=== PATIENT | female | born 2000 ===

== ENCOUNTER 2020-08-26 12:17 | Outpatient (REF) | payer OTHER, SELFPAY | END 2020-08-26 12:18 | disposition home or self-care (01) | LOC: HO.LAB 12:17 | PROVIDERS: PCP Internal Medicine; Visit Provider Internal Medicine | DX: Z20.828 Contact with and (suspected) exposure to other viral communicable diseases (principal) | CPT/HCPCS: C9803; U0003 ==

== ENCOUNTER 2020-09-22 09:51 | Outpatient (REF) | payer OTHER, SELFPAY ==
[2020-09-24 21:37] LABS: TS Negative Control Passed; TS Panel A 0; TS Panel B 0; TS Positive Control Passed; TSpotTB Negative (SeeBelow)
== END 2020-09-22 09:52 | disposition home or self-care (01) ==
LOC: HO.HMGCLDS 09:51
PROVIDERS: PCP Internal Medicine; Visit Provider Internal Medicine
DX: Z11.1 Encounter for screening for respiratory tuberculosis (principal)
CPT/HCPCS: 86481

== ENCOUNTER 2021-03-11 13:17 | Emergency (ER) | payer OTHER, SELFPAY ==
--- NOTE | ~2021-03-11 | US_ITS ---
EXAMINATION: US VENOUS ULTRASOUND WITH DOPPLER LOWER EXTREMITY, RIGHT CLINICAL INFORMATION: Swelling and pain. COMPARISON: None TECHNIQUE: Ultrasound of the deep veins is performed from the hip to the calf with compression sonography and color and pulse Doppler assessment. Spectral analysis with color-flow imaging is performed. FINDINGS: There is normal venous compression and respiratory variation and augmented flow. The visualized common femoral vein, superficial femoral vein, profunda femoral vein, popliteal vein, and the trifurcation region shows no evidence of deep venous thrombosis. There is no significant popliteal fossa cyst. The peroneal vein is not visualized with certainty. If the patient's symptoms persist, followup ultrasound in 5 days 7 days might be of value to exclude proximal propagation from a non-visualized calf vein. US/US venous duplex LE RT IMPRESSION: No DVT demonstrated in the right lower extremity.
[2021-03-11 13:50] VITALS: BP 148/81; PULSE 92; RESP 18; TEMP 36.8; O2SAT 100; BMI 57.9
--- NOTE | 2021-03-11 15:02 | ED_ITS ---
HPI - Extremity Injury (Lower) General Chief Complaint: Extremity Injury, Lower Stated Complaint: redness on leg Time Seen by Provider: 03/11/21 14:48 Source: patient and certified court/medical interpreter Mode of arrival: ambulatory Limitations: no limitations and language barrier History of Present Illness HPI Narrative: 20 yo female here with complaints of pain, swelling and warmth to the right calf x3 days. She has a history of cellulitis on this leg and states it feels similar. No redness, fevers or chills. Related Data Allergies Allergy/AdvReac Type Severity Reaction Status Date / Time No Known Allergies Allergy Verified 03/11/21 14:10 Review of Systems Review of Systems: Yes all other systems are reviewed and are negative Constitutional: Constitutional: Reports no additional constitutional complaints, Denies body ache(s), Denies chills, Denies fever(s), Denies headache(s) and Denies weakness Eyes: Eyes: Reports no additional eye complaints and Denies change in vision ENT: Reports system reviewed and no additional complaints, except as documented, Denies dizziness, Denies headache(s), Denies nasal congestion, Denies nasal discharge and Denies neck pain Cardiovascular: Cardiovascular: Reports no additional cardiovascular complaints, Denies chest pain, Reports leg edema and Denies dyspnea Respiratory: Respiratory: Reports no additional respiratory complaints, Denies cough and Denies dyspnea Gastrointestinal: Gastrointestinal: Reports no additional gastrointestinal complaints, Denies abdominal pain, Denies diarrhea, Denies nausea and Denies vomiting Genitourinary: Genitourinary: Reports no additional female genitourinary complaints and Denies urinary incontinence Musculoskeletal: Musculoskeletal: Reports no additional musculoskeletal co mplaints, Denies back pain, Denies arthralgias, Denies joint swelling, Denies neck pain, Denies numbness and Denies tingling Integumentary/Breasts: Skin/Breast: Reports system reviewed and no additional complaints, except as docu and Denies rash Neurologic: Reports system reviewed and no additional complaints, except as documented, Denies Abnormal speech present, Denies dizziness, Denies headache(s), Denies numbness, Denies tingling and Denies weakness PMFSH Past Medical History Attestation statement: The following information was validated with the patient. Source: old records reviewed and nursing notes reviewed Social History Social History Advance Directives: No Advance Directives Information Provided: Yes Physical Exam Vital Signs: Vital Signs: Last Vital Signs Temp 98.2 F 03/11/21 13:50 Pulse 92 03/11/21 13:50 Resp 18 03/11/21 13:50 BP 148/81 H 03/11/21 13:50 Pulse Ox 100 03/11/21 13:50 Body Mass Index 57.9 Const: General: cooperative, healthy appearing, comfortable and no acute distress Orientation/consciousness: patient oriented x3 Limitations: no limitations HENMT: Head: Yes normal to inspection Ears: hearing grossly normal bilaterally General nose exam: Normal external nose present Face and sinus: Yes normal facial exam Mouth: Normal oral and palatal mucosa present Throat: Yes posterior oropharynx normal Eyes: General: appearance normal, both eyes and all related structures Pupils: Equal, round and reactive pupils present Neck: Neck: Yes normal visual inspection Chest: Chest palpation & inspection: normal inspection of the chest Resp: Effort & Inspection: normal respiratory effort Auscultation: clear to auscultation bilaterally Cardio: Rate: regular rate Rhythm: regular rhythm Peripheral pulses: Peripheral pulses 2+ throughout GI: Inspection: Yes normal to inspection Palpation (GI): Soft to palpation and nontender Auscultation: normal bowel sounds Back/Spine/Pelvis: Thoracic/Lumbar Spine: thoracic and lumbar spine normal to inspection Skin: General skin exam: no rashes or lesions noted Neuro: General: patient oriented x3, no focal motor deficits and normal sensation to monofilament Cranial nerves: Yes Equal, round and reactive pupils present Cognition (Neuro): normal cognition Speech: No Abnormal speech present Gait exam (Neuro): Normal gait present Motor exam (neuro): 5/5 motor strength present throughout Extrem: General: Yes normal to inspection and Yes calf tenderness (Right calf tender, mild swelling. No warmth or redness) Course Course Course Narrative: 20-year-old female here with right calf tenderness, swelling and reported warmth. Exam is not consistent with cellulitis. There is some mild calf tenderness and swelling. The patient is grossly obese. Will check ultrasound to r/o DVT -ultrasound negative for DVT. I did not appreciate any signs of cellulitis on exam. Likely muscle strain. Reviewed findings with the patient. Reviewed worrisome signs and symptoms such as fever, redness, warmth and when to return to the emergency department. Comfortable discharge home. Discharge Plan Discharge Clinical Impression: Muscle strain Patient Disposition: Home, Self-Care Instructions: Muscle Strain (ED) Additional Instructions: Your ultrasound shows no signs of blood clot Return for increasing redness or warmth or fever greater than 100.4 Referrals: Sarah Vergara MD [Primary Care Provider] - 2 days Interventions: ED Discharge Assessment Last Done: 03/11/21 16:53 Discharge Date/Time: 03/11/21 16:53
== END 2021-03-11 16:53 | disposition home or self-care (01) ==
PROVIDERS: Emergency Provider Emergency Medicine Emergency Medical Services; PCP Internal Medicine
DX: S86.911A Strain of unspecified muscle(s) and tendon(s) at lower leg level, right leg, initial encounter (principal); X58.XXXA Exposure to other specified factors, initial encounter; R22.41 Localized swelling, mass and lump, right lower limb; M79.661 Pain in right lower leg; Y93.9 Activity, unspecified; Y92.9 Unspecified place or not applicable; Y99.9 Unspecified external cause status
CPT/HCPCS: 93971; 99283; 99284

== ENCOUNTER 2021-07-25 15:08 | Emergency (ER) | payer OTHER, SELFPAY ==
[2021-07-25 17:52] VITALS: BP 130/60; PULSE 82; RESP 18; TEMP 36.8; O2SAT 100; BMI 56.9
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
== END 2021-07-25 19:26 | disposition home or self-care (01) ==
PROVIDERS: Emergency Provider Emergency Medicine Emergency Medical Services; PCP Internal Medicine
DX: S39.012A Strain of muscle, fascia and tendon of lower back, initial encounter (principal); M54.2 Cervicalgia; V43.62XA Car passenger injured in collision with other type car in traffic accident, initial encounter; Y93.9 Activity, unspecified; Y92.410 Unspecified street and highway as the place of occurrence of the external cause; Y99.9 Unspecified external cause status; Z79.899 Other long term (current) drug therapy
CPT/HCPCS: 99283

== ENCOUNTER 2021-09-11 11:30 | Emergency (ER) | payer OTHER, SELFPAY ==
--- NOTE | 2021-09-11 | ECG_ITS ---
Test Reason : TACHYCHADIC Blood Pressure : / mmHG Vent. Rate : 114 BPM Atrial Rate : 114 BPM P-R Int : 134 ms QRS Dur : 072 ms QT Int : 322 ms P-R-T Axes : 029 015 018 degrees QTc Int : 443 ms Sinus tachycardia Otherwise normal ECG No previous ECGs available Referred By: Generic ED Physician Electronically Signed By:ALVAREZ SAHNI MD
--- NOTE | ~2021-09-11 | US_ITS ---
EXAMINATION: US VENOUS ULTRASOUND WITH DOPPLER LOWER EXTREMITY, RIGHT CLINICAL INFORMATION: Pain COMPARISON: None TECHNIQUE: Ultrasound of the deep veins is performed from the hip to the calf with compression sonography and color and pulse Doppler assessment. Spectral analysis with color-flow imaging is performed. FINDINGS: There is normal venous compression and respiratory variation and augmented flow. The visualized common femoral vein, superficial femoral vein, profunda femoral vein, popliteal vein, and the trifurcation region shows no evidence of deep venous thrombosis. The calf veins are not visualized due to edema. Superficial varicosities noted. If the patient's symptoms persist, followup ultrasound in 5 days 7 days might be of value to exclude proximal propagation from a non-visualized calf vein. US/US venous duplex LE RT IMPRESSION: No DVT demonstrated in the right lower extremity from the common femoral vein to the popliteal vein. The calf veins are not visualized. If the patient's symptoms persist, followup ultrasound in 5 days 7 days might be of value to exclude proximal propagation from a non-visualized calf vein.
[2021-09-11 11:47] VITALS: BP 148/88; PULSE 120; RESP 18; TEMP 37.3; O2SAT 100; BMI 56.9
[2021-09-11 13:58] VITALS: BP 135/70; PULSE 104; RESP 18; TEMP 36.9; O2SAT 99
--- NOTE | 2021-09-11 14:09 | ED_ITS ---
HPI - Extremity Problem General Chief complaint: Extremity Problem Stated complaint: rt leg pain & swelling ?cellulitis Time Seen by Provider: 09/11/21 13:01 History of Present Illness HPI Narrative: Patient complains of anterior right lower leg redness and pain for several days, she may have had a low-grade fever yesterday, but no fever today She otherwise feels well and has no headache no body aches no dizziness Related Data Previous Rx's Medication Instructions Recorded cyclobenzaprine 10 mg tablet 10 mg PO TID PRN #10 tab 07/25/21 ibuprofen 600 mg tablet 600 mg PO Q8H PRN #20 tab 07/25/21 lidocaine 5 % topical patch 1 patch TOPICAL DAILY #15 ea 07/25/21 (Lidoderm) metoprolol succinate 50 mg 50 mg PO DAILY #30 tab 08/09/21 tablet,extended release 24 hr cephalexin 500 mg tablet 500 mg PO QID 7 Days #28 tab 09/11/21 doxycycline hyclate 100 mg capsule 100 mg PO BID 7 Days #14 cap 09/11/21 Allergies Allergy/AdvReac Type Severity Reaction Status Date / Time No Known Allergies Allergy Verified 08/17/21 10:55 Review of Systems Review of Systems: Positive for right lower leg redness and pain Negatives are no chills no dizziness no weakness no headache no confusion no neck pain no stiff neck no other skin rashes no nausea or vomiting no anorexia no fatigue Yes all other systems are reviewed and are negative [facility] Past Medical History Source: nursing notes reviewed Medical History (Updated 09/11/21 @ 14:53 by JOSE Ferrer) Hypertensive retinopathy of both eyes Lumbago with sciatica, right side Social History Social History Advance Directives: No Advance Directives Information Provided: Yes Patient : No Physical Exam Vital Signs: Vital Signs: Last Vital Signs Temp 98.4 F 09/11/21 13:58 Pulse 104 H 09/11/21 13:58 Resp 18 09/11/21 13:58 BP 135/70 09/11/21 13:58 Pulse Ox 99 09/11/21 13:58 Body Mass Index 56.9 Pulse of 120 was noted when patient entered from triage, but repeat pulse was 104 and when patient was observed on the monitor the pulse was in the 90s General appearance no acute distress The neck is supple The chest is clear to auscultation bilateral Heart no murmur Abdomen soft nontender Extremities full range of motion x4 Right lower leg had a 3 cm x 4 cm area of redness and very mild induration no fluctuance no discharge no lymphangitis, the area was tender and mildly warm There is full range of motion in the ankle and the knee in the gait was normal Neuro no focal motor sensory deficits Course Course Course Narrative: Sepsis unlikely as initial elevated pulse done in triage was likely from walking up the hill to the department and pulse remained normal throughout visit in the ER with no medication or fluids Patient has no complaint of headache fever fatigue and her only complaint is the painful red area in her right lower leg so patient was discharged on antibiotics the cellulitis was marked and she will return in 2-3 days for recheck Ultrasound of the right lower leg was done and was negative for DVT Discharge Plan Discharge Clinical Impression: Cellulitis of leg, right Patient Disposition: Home, Self-Care Additional Instructions: Use antibiotics as directed The ultrasound of her leg was negative there is no blood clot If the leg gets more swollen return to the ER for recheck Return to the ER any time for spreading redness, worse pain and swelling, red stripe up her leg, fever, any worse condition or any concerns Return to the ER in 2-3 days for recheck Prescriptions: New cephalexin 500 mg tablet 500 mg PO QID 7 Days Qty: 28 RF: 0 doxycycline hyclate 100 mg capsule 100 mg PO BID 7 Days Qty: 14 RF: 0 No Action metoprolol succinate 50 mg tablet extended release 24 hr 50 mg PO DAILY Qty: 30 RF: 1 cyclobenzaprine 10 mg tablet 10 mg PO TID PRN (Reason: muscle spasm) Qty: 10 RF: 0 lidocaine [Lidoderm] 5 % adhesive patch,medicated 1 patch topical DAILY Qty: 15 RF: 0 ibuprofen 600 mg tablet 600 mg PO Q8H PRN (Reason: pain) Qty: 20 RF: 0
[2021-09-11] MEDS: cephALEXin 500 MG CAPSULE PO (14:59)
== END 2021-09-11 15:10 | disposition home or self-care (01) ==
PROVIDERS: Emergency Provider Emergency Medicine Emergency Medical Services; PCP Internal Medicine
DX: L03.115 Cellulitis of right lower limb (principal); M79.604 Pain in right leg
CPT/HCPCS: 93005; 93971; 99283; 99284

== ENCOUNTER 2021-10-03 19:51 | Emergency (ER) | payer OTHER, SELFPAY ==
--- NOTE | ~2021-10-03 | XR_ITS ---
EXAMINATION: XR CHEST CLINICAL INFORMATION: Chest pain COMPARISON: None TECHNIQUE: Frontal view of the chest was obtained. FINDINGS: No significant abnormality is noted involving the heart, lungs, mediastinum, bony thorax or soft tissues. XR/XR chest 1V IMPRESSION: Unremarkable examination.
[2021-10-03 20:17] VITALS: BP 156/87; PULSE 124; RESP 17; TEMP 36.4; O2SAT 100; BMI 54.9
--- NOTE | 2021-10-03 20:23 | ECG_ITS ---
Test Reason : PALPITATIONS Blood Pressure : / mmHG Vent. Rate : 112 BPM Atrial Rate : 112 BPM P-R Int : 130 ms QRS Dur : 068 ms QT Int : 314 ms P-R-T Axes : 030 011 024 degrees QTc Int : 428 ms Sinus tachycardia Cannot rule out Anterior infarct , age undetermined , ? lead placement Borderline ECG When compared with ECG of 11-SEP-2021 12:02, No significant change was found Referred By: Generic ED Physician Electronically Signed By:ANNETTE MADRID MD
[2021-10-03 21:24] LABS: Anion Gap 16 (12-20); Blood Urea Nitrogen 20 mg/dL (9-16); Calcium 9.5 mg/dL (8.4-10.2); Carbon Dioxide 19 mmol/L (22-29); Chloride 106 mmol/L (96-108); Creatinine Clr Calc Pharmacy 108.5; Estimated Glomerular Filt Rate > 60; Glucose Random 113 mg/dL (60-115); Potassium 4.5 mmol/L (3.3-5.1); Sodium 136 mmol/L (135-145)
[2021-10-03 22:48] LABS: Basophils Absolute Auto 0.1 X10*3/uL (0.0-0.2); Basophils Percent Auto 0.5 % (0-2); Eosinophils Absolute Auto 0.3 X10*3/uL (0.0-0.4); Eosinophils Percent Auto 1.9 % (0-4); Hematocrit 34.5 % (37.0-47.0); Hemoglobin 9.3 g/dl (12.0-16.0); Imm Gran Abs Auto 0.03 X10*3/uL (0.00-0.03); Imm Gran Pct Auto 0.2 % (0.0-0.4); Lymphocytes Absolute Auto 2.8 X10*3/uL (1.2-4.9); Lymphocytes Percent Auto 21.5 % (20-40); Mean Corpuscular Hemoglobin 16.7 pg (27.0-33.0); Mean Platelet Volume 8.9 fL (9.4-12.3); Monocytes Percent Auto 7.7 % (2-11); Neutrophils Percent Auto 68.2 % (45-73); Platelet Count 390 X10*3/uL (160-400); Red Blood Count 5.57 X10*6/uL (4.20-5.50); Red Cell Distribution Width 22.8 % (11.0-16.0); White Blood Count 13.2 X10*3/uL (4.8-10.8)
[2021-10-03 22:51] LABS: MANUAL DIFF FLAG SCAN; Mean Corpuscular Volume 61.9 fL (80.0-98.0)
[2021-10-03 23:05] LABS: SLIDE REVIEW VERIFIED
[2021-10-03 23:12] LABS: Troponin-I High Sensitivity < 3.5 ng/L (<3.5-17.0)
[2021-10-03 23:58] LABS: Appearance Urine CLOUDY; Color Urine YELLOW; Glucose Urine UA NEG (NEG); Leukocyte Esterase Urine NEG (NEG); Nitrite Urine NEG (NEG); PH 6.5 (5.0-8.0); UACC Culture Trigger NO; Urine Blood 3+ (NEG); Urine Ketones NEG (NEG); Urine Protein NEG (NEG-TRACE)
[2021-10-04 00:14] LABS: Amorphous Sediment Urine 1+ /LPF; Bacteria Urine TRACE /LPF; RBC Urine 50-75 /HPF (0); Squamous Epithelial Cell Urine 3+ /LPF
--- NOTE | 2021-10-04 00:19 | ED.ARRPALP ---
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 have not been associated with any fever, chills, shortness of breath, nausea, sweating, GI or symptoms. Patient states that she did drink caffeine today and understands that she is not supposed to be consuming this. Related Data Previous Rx's Medication Instructions Recorded cyclobenzaprine 10 mg tablet 10 mg PO TID PRN #10 tab 07/25/21 ibuprofen 600 mg tablet 600 mg PO Q8H PRN #20 tab 07/25/21 lidocaine 5 % topical patch 1 patch TOPICAL DAILY #15 ea 07/25/21 (Lidoderm) cephalexin 500 mg tablet 500 mg PO QID 7 Days #28 tab 09/11/21 doxycycline hyclate 100 mg capsule 100 mg PO BID 7 Days #14 cap 09/11/21 metoprolol succinate 50 mg 50 mg PO DAILY #30 tab 10/01/21 tablet,extended release 24 hr Allergies Allergy/AdvReac Type Severity Reaction Status Date / Time No Known Allergies Allergy Verified 10/03/21 20:23 Review of Systems Review of Systems: Pertinent positives and negatives as stated in HPI 10 point review of systems is otherwise negative. PMFSH Past Medical History Medical History (Updated 10/04/21 @ 00:29 by Cookie Porras MD) Hypertensive retinopathy of both eyes Lumbago with sciatica, right side Social History Social History Advance Directives: No Advance Directives Information Provided: Yes Patient : No Physical Exam Vital Signs: Vital Signs: Last Vital Signs Temp 97.6 F 10/03/21 20:17 Pulse 124 H 10/03/21 20:17 Resp 17 10/03/21 20:17 BP 156/87 H 10/03/21 20:17 Pulse Ox 100 10/03/21 20:17 BMI result Body Mass Index 54.9 VITAL SIGNS: Reviewed. GENERAL: Well developed, well nourished, in no acute distress. HEAD: Normocephalic/atraumatic EYES: PERRLA, EOMI OROPHARYNX: no oral lesions noted, posterior pharynx clear NECK: Supple, no adenopathy LUNGS: Normal breath sounds. No adventitious sounds or accessory muscle use. SpO2<> CARDIOVASCULAR: Sinus tachycardia and rhythm without noted murmurs, no JVD or lower extremity edema. ABDOMEN: Obese, Soft, non-tender, non-distended with bowel sounds. NEUROLOGIC: Alert and oriented x 4. Course Course Course Narrative: This is a 21-year-old female with history and clinical presentation likely consistent with underlying palpitations which were exacerbated by excessive caffeine intake. Low clinical suspicion for PE. There is a noted leukocytosis chest x-ray and urinalysis are negative for acute findings. The anemia is acknowledged and patient is currently menstruating and is otherwise asymptomatic but instructed follow-up with primary care provider. MDM - Arrhythmia/Palpitations Lab Data Result diagrams: 10/03/21 22:43 10/03/21 20:59 Labs: Lab Results 10/03/21 10/03/21 10/03/21 Range/Units 20:59 22:43 22:43 WBC 13.2 H (4.8-10.8) X10*3/uL RBC 5.57 H (4.20-5.50) X10*6/uL Hgb 9.3 L (12.0-16.0) g/dl Hct 34.5 L (37.0-47.0) % MCV 61.9 L (80.0-98.0) fL MCH 16.7 L (27.0-33.0) pg MCHC 27.0 L (31.0-35.0) g/dl RDW 22.8 H (11.0-16.0) % Plt Count 390 (160-400) X10*3/uL MPV 8.9 L (9.4-12.3) fL Immature Gran % (Auto) 0.2 (0.0-0.4) % Neut % (Auto) 68.2 (45-73) % Lymph % (Auto) 21.5 (20-40) % [place] % (Auto) 7.7 (2-11) % Eos % (Auto) 1.9 (0-4) % Baso % (Auto) 0.5 (0-2) % Lymph # (Auto) 2.8 (1.2-4.9) X10*3/uL [place] # (Auto) 1.0 (0.1-1.2) X10*3/uL Eos # (Auto) 0.3 (0.0-0.4) X10*3/uL Baso # (Auto) 0.1 (0.0-0.2) X10*3/uL Abs Immat Gran (auto) 0.03 (0.00-0.03) X10*3/uL Absolute Neuts (auto) 9.0 H (2.0-8.3) x10*3/uL Absolute Nucleated RBC 0.000 (0.0-0.012) X10*3/uL Nucleated RBC % (auto) 0.0 (0.0-0.2) /100WBC Smear Tech's Comments VERIFIED Sodium 136 (135-145) mmol/L Potassium 4.5 (3.3-5.1) mmol/L Chloride 106 (96-108) mmol/L Carbon Dioxide 19 L (22-29) mmol/L Anion Gap 16 (12-20) BUN 20 H (9-16) mg/dL Creatinine 0.85 (0.5-1.4) mg/dL Estim Creat Clear Calc 108.5 Estimated GFR > 60 Random Glucose 113 (60-115) mg/dL Calcium 9.5 (8.4-10.2) mg/dL Troponin I High Sens < 3.5 (<3.5-17.0) ng/L Urine Color Urine Appearance Urine pH (5.0-8.0) Ur Specific [place] (1.005-1.025) Urine Protein (NEG-TRACE) MG/DL Urine Glucose (UA) (NEG) MG/DL Urine Ketones (NEG) MG/DL Urine Blood (NEG) Urine Nitrite (NEG) Ur Leukocyte Esterase (NEG) Urine RBC (0) /HPF Urine WBC (0-4) /HPF Ur Squamous Epith Cells /LPF Amorphous Sediment /LPF Urine Bacteria /LPF 10/03/21 Range/Units 23:54 WBC (4.8-10.8) X10*3/uL RBC (4.20-5.50) X10*6/uL Hgb (12.0-16.0) g/dl Hct (37.0-47.0) % MCV (80.0-98.0) fL MCH (27.0-33.0) pg MCHC (31.0-35.0) g/dl RDW (11.0-16.0) % Plt Count (160-400) X10*3/uL MPV (9.4-12.3) fL Immature Gran % (Auto) (0.0-0.4) % Neut % (Auto) (45-73) % Lymph % (Auto) (20-40) % [place] % (Auto) (2-11) % Eos % (Auto) (0-4) % Baso % (Auto) (0-2) % Lymph # (Auto) (1.2-4.9) X10*3/uL [place] # (Auto) (0.1-1.2) X10*3/uL Eos # (Auto) (0.0-0.4) X10*3/uL Baso # (Auto) (0.0-0.2) X10*3/uL Abs Immat Gran (auto) (0.00-0.03) X10*3/uL Absolute Neuts (auto) (2.0-8.3) x10*3/uL Absolute Nucleated RBC (0.0-0.012) X10*3/uL Nucleated RBC % (auto) (0.0-0.2) /100WBC Smear Tech's Comments Sodium (135-145) mmol/L Potassium (3.3-5.1) mmol/L Chloride (96-108) mmol/L Carbon Dioxide (22-29) mmol/L Anion Gap (12-20) BUN (9-16) mg/dL Creatinine (0.5-1.4) mg/dL Estim Creat Clear Calc Estimated GFR Random Glucose (60-115) mg/dL Calcium (8.4-10.2) mg/dL Troponin I High Sens (<3.5-17.0) ng/L Urine Color YELLOW Urine Appearance CLOUDY Urine pH 6.5 (5.0-8.0) Ur Specific [place] 1.020 (1.005-1.025) Urine Protein NEG (NEG-TRACE) MG/DL Urine Glucose (UA) NEG (NEG) MG/DL Urine Ketones NEG (NEG) MG/DL Urine Blood 3+ H (NEG) Urine Nitrite NEG (NEG) Ur Leukocyte Esterase NEG (NEG) Urine RBC 50-75 H (0) /HPF Urine WBC 1-4 (0-4) /HPF Ur Squamous Epith Cells 3+ /LPF Amorphous Sediment 1+ /LPF Urine Bacteria TRACE /LPF ECG Data Attestation: I personally reviewed and interpreted this ECG as follows: Prior ECG tracings: available for review Interpretation: Sinus tachycardia, HR-112, no STEMI, AL/QRS/QTC are within normal limits. Discharge Plan Discharge Clinical Impression: Palpitations Patient Disposition: Home, Self-Care Instructions: Heart Palpitations (ED) Additional Instructions: 1. Reanude todos los medicamentos caseros seg?n lo prescrito y evite los productos con cafe?na. 2. Yuri un seguimiento con oscar m?dico de cabecera para que le reeval?e la anemia y las palpitaciones. Regrese a la john de emergencias si los s?ntomas empeoran. Prescriptions: No Action metoprolol succinate 50 mg tablet extended release 24 hr 50 mg PO DAILY Qty: 30 RF: 5 cyclobenzaprine 10 mg tablet 10 mg PO TID PRN (Reason: muscle spasm) Qty: 10 RF: 0 lidocaine [Lidoderm] 5 % adhesive patch,medicated 1 patch topical DAILY Qty: 15 RF: 0 ibuprofen 600 mg tablet 600 mg PO Q8H PRN (Reason: pain) Qty: 20 RF: 0 cephalexin 500 mg tablet 500 mg PO QID 7 Days Qty: 28 RF: 0 doxycycline hyclate 100 mg capsule 100 mg PO BID 7 Days Qty: 14 RF: 0 Print Language: Serbian
[2021-10-04 00:21] VITALS: BP 142/84; PULSE 104; RESP 16; O2SAT 100
== END 2021-10-04 00:58 | disposition home or self-care (01) ==
PROVIDERS: Emergency Provider Student in an Organized Health Care Education/Training Program
DX: R00.2 Palpitations (principal); I10 Essential (primary) hypertension; Z79.899 Other long term (current) drug therapy
CPT/HCPCS: 36415; 71045; 80048; 81001; 84484; 85025; 93005; 99283; 99284

== ENCOUNTER 2021-10-05 22:16 | Emergency (ER) | payer OTHER, SELFPAY ==
--- NOTE | ~2021-10-05 | CT_ITS ---
EXAMINATION: CT ABDOMEN AND PELVIS WITH CONTRAST CLINICAL INFORMATION: Mid abdomen pain. COMPARISON: None TECHNIQUE: Multidetector volumetric images were obtained from the superior aspect of the liver through the pubic symphysis following administration 85 mL of Omnipaque 350 intravenous contrast. Sagittal and coronal reformatted images were obtained on the technologist's workstation. Oral contrast: No. This CT examination was performed using dose optimization techniques as appropriate, variously including the following: *Automated exposure control *Adjustment of mA and/or kV according to patient size (this includes techniques or standardized protocols for targeted exams where dose is matched to indication/reason for exam; i.e. extremities or head) *Use of iterative reconstruction technique DLP: 1696 mGy-cm FINDINGS: LUNG BASES: The visualized lung bases are unremarkable. LIVER, GALLBLADDER, AND BILIARY TREE: The liver is normal in size, shape, and attenuation. No focal hepatic lesion or biliary ductal dilatation is present. There are multiple radiopaque gallstones without wall thickening. PANCREAS: Unremarkable. SPLEEN: Unremarkable. ADRENAL GLANDS: Unremarkable. KIDNEYS AND URETERS: There is a small hypodense punctate density lower pole of left kidney, probable small cyst. The rest of the kidneys are unremarkable. No radiopaque calculi or hydronephrosis. BLADDER: Unremarkable. GASTROINTESTINAL TRACT: The small and large bowel are unremarkable. The appendix is unremarkable. ABDOMINAL WALL: No significant hernia is appreciated. LYMPH NODES: Normal. VASCULAR: Unremarkable. PELVIC VISCERA: There is a low-density cystic lesion in the right adnexa superior to the uterus measuring 7.2 x 4.9 x 5.6 cm. There is a smaller hypodense cyst adjacent to it measuring 2.2 cm. The uterus is anteverted. OSSEOUS STRUCTURES: No lytic or sclerotic process seen. CT/CT abdomen pelvis w con IMPRESSION: Right adnexal cyst with a large right adnexal cyst measuring 7.2 cm wide. Cholelithiasis without wall thickening. Fleischner guidelines were followed.
[2021-10-05 22:21] VITALS: BP 124/72; BP 154/74; PULSE 103; PULSE 105; RESP 18; TEMP 37.1; O2SAT 97; O2SAT 99; BMI 54.9
--- NOTE | 2021-10-06 00:50 | ED_ITS ---
HPI - Abdominal Pain General Chief Complaint: Abdominal Pain Stated Complaint: nausea and vomiting, not feeling well. Time Seen by Provider: 10/05/21 23:13 Source: patient Mode of arrival: ambulatory History of Present Illness HPI narrative: 21-year-old female with history and clinical presentation of subjective fevers, chills, nausea, vomiting and states that she is having periumbilical pain that is crampy in nature and nonradiating. Otherwise she denies any urinary symptoms and denies possibility of . Related Data Previous Rx's Medication Instructions Recorded cyclobenzaprine 10 mg tablet 10 mg PO TID PRN #10 tab 07/25/21 ibuprofen 600 mg tablet 600 mg PO Q8H PRN #20 tab 07/25/21 lidocaine 5 % topical patch 1 patch TOPICAL DAILY #15 ea 07/25/21 (Lidoderm) cephalexin 500 mg tablet 500 mg PO QID 7 Days #28 tab 09/11/21 doxycycline hyclate 100 mg capsule 100 mg PO BID 7 Days #14 cap 09/11/21 metoprolol succinate 50 mg 50 mg PO DAILY #30 tab 10/01/21 tablet,extended release 24 hr Allergies Allergy/AdvReac Type Severity Reaction Status Date / Time No Known Allergies Allergy Verified 10/03/21 20:23 Review of Systems Review of Systems Pertinent positives and negatives as stated in HPI 10 point review of systems is otherwise negative. Physical Exam Vital Signs: Vital Signs: Last Vital Signs Temp 98.8 F 10/05/21 22:21 Pulse 103 H 10/05/21 22:21 Resp 18 10/05/21 22:21 BP 124/72 10/05/21 22:21 Pulse Ox 99 10/05/21 22:21 BMI result Body Mass Index 54.9 VITAL SIGNS: Reviewed. GENERAL: Obese, Well developed, well nourished, in no acute distress. HEAD: Normocephalic/atraumatic EYES: PERRLA, EOMI OROPHARYNX: no oral lesions noted, posterior pharynx clear LUNGS: Normal breath sounds. No adventitious sounds or accessory muscle use. SpO2<99> CARDIOVASCULAR: Regular rate and rhythm without noted murmurs ABDOMEN: Soft, tenderness at mid abdomen and into right abdomen, but exam is somewhat limited by body habitus, non-distended with bowel sounds. NEUROLOGIC: Alert and oriented x 4. Course Course Course Narrative: 21-year-old female with history and clinical presentation suggestive of possible renal colic, appendicitis, and less likely cholecystitis. Remaining documentation in is on downtime paperwork. Patient was discharged with surgical referral for cholelithiasis. MDM - Abdominal Pain Lab Data Result diagrams: 10/05/21 22:23 10/06/21 01:26 Labs: Lab Results 10/05/21 10/06/21 10/06/21 Range/Units 22:23 01:26 01:36 WBC 7.9 (4.8-10.8) X10*3/uL RBC 5.92 H (4.20-5.50) X10*6/uL Hgb 9.9 L (12.0-16.0) g/dl Hct 36.1 L (37.0-47.0) % MCV 61.0 L (80.0-98.0) fL MCH 16.7 L (27.0-33.0) pg MCHC 27.4 L (31.0-35.0) g/dl RDW 22.2 H (11.0-16.0) % Plt Count 297 (160-400) X10*3/uL MPV 8.6 L (9.4-12.3) fL Immature Gran % (Auto) 0.5 H (0.0-0.4) % Neut % (Auto) 87.4 H (45-73) % Lymph % (Auto) 6.8 L (20-40) % [place] % (Auto) 5.2 (2-11) % Eos % (Auto) 0.0 (0-4) % Baso % (Auto) 0.1 (0-2) % Lymph # (Auto) 0.5 L (1.2-4.9) X10*3/uL [place] # (Auto) 0.4 (0.1-1.2) X10*3/uL Eos # (Auto) 0.0 (0.0-0.4) X10*3/uL Baso # (Auto) 0.0 (0.0-0.2) X10*3/uL Abs Immat Gran (auto) 0.04 H (0.00-0.03) X10*3/uL Absolute Neuts (auto) 6.9 (2.0-8.3) x10*3/uL Absolute Nucleated RBC 0.000 (0.0-0.012) X10*3/uL Nucleated RBC % (auto) 0.0 (0.0-0.2) /100WBC Sodium 131 L (135-145) mmol/L Potassium 3.9 (3.3-5.1) mmol/L Chloride 104 (96-108) mmol/L Carbon Dioxide 18 L (22-29) mmol/L Anion Gap 13 (12-20) BUN 14 (9-16) mg/dL Creatinine 0.77 (0.5-1.4) mg/dL Estim Creat Clear Calc 119.8 Estimated GFR > 60 Random Glucose 120 H (60-115) mg/dL Calcium 8.7 D (8.4-10.2) mg/dL Total Bilirubin 0.6 (0.0-1.0) mg/dL AST 17 (5-31) U/L ALT 11 (0-31) U/L Alkaline Phosphatase 66 (39-117) U/L Total Protein 8.1 H (6.5-8.0) g/dL Albumin 4.1 (3.5-5.0) g/dL Lipase 24 (8-78) U/L Beta HCG, Quant < 2 mIU/mL COVID-19 ([facility]) Negative (Negative) COVID-19 Clin Com See Note Discharge Plan Discharge Clinical Impression: Abdominal pain, Cholelithiasis Patient Disposition: Home, Self-Care Prescriptions: No Action metoprolol succinate 50 mg tablet extended release 24 hr 50 mg PO DAILY Qty: 30 RF: 5 cyclobenzaprine 10 mg tablet 10 mg PO TID PRN (Reason: muscle spasm) Qty: 10 RF: 0 lidocaine [Lidoderm] 5 % adhesive patch,medicated 1 patch topical DAILY Qty: 15 RF: 0 ibuprofen 600 mg tablet 600 mg PO Q8H PRN (Reason: pain) Qty: 20 RF: 0 cephalexin 500 mg tablet 500 mg PO QID 7 Days Qty: 28 RF: 0 doxycycline hyclate 100 mg capsule 100 mg PO BID 7 Days Qty: 14 RF: 0 PMFSH Past Medical History Source: nursing notes reviewed Medical History Hypertensive retinopathy of both eyes Lumbago with sciatica, right side Social History Social History Advance Directives: No Advance Directives Information Provided: No
[2021-10-06 05:40] LABS: Basophils Percent Auto 0.1 % (0-2); Hematocrit 36.1 % (37.0-47.0); Hemoglobin 9.9 g/dl (12.0-16.0); Imm Gran Abs Auto 0.04 X10*3/uL (0.00-0.03); Imm Gran Pct Auto 0.5 % (0.0-0.4); Lymphocytes Absolute Auto 0.5 X10*3/uL (1.2-4.9); Lymphocytes Percent Auto 6.8 % (20-40); MANUAL DIFF FLAG NO; Mean Corpuscular HGB Conc 27.4 g/dl (31.0-35.0); Mean Corpuscular Hemoglobin 16.7 pg (27.0-33.0); Mean Platelet Volume 8.6 fL (9.4-12.3); Monocytes Absolute Auto 0.4 X10*3/uL (0.1-1.2); Monocytes Percent Auto 5.2 % (2-11); Neutrophils Absolute Auto 6.9 x10*3/uL (2.0-8.3); Neutrophils Percent Auto 87.4 % (45-73); Platelet Count 297 X10*3/uL (160-400); Red Blood Count 5.92 X10*6/uL (4.20-5.50); Red Cell Distribution Width 22.2 % (11.0-16.0); White Blood Count 7.9 X10*3/uL (4.8-10.8)
[2021-10-06 05:40] LABS: Alanine Aminotransferase 11 U/L (0-31); Albumin Level 4.1 g/dL (3.5-5.0); Alkaline Phosphatase 66 U/L (39-117); Anion Gap 13 (12-20); Aspartate Amino Transferase 17 U/L (5-31); Bilirubin Total 0.6 mg/dL (0.0-1.0); Blood Urea Nitrogen 14 mg/dL (9-16); Calcium 8.7 mg/dL (8.4-10.2); Carbon Dioxide 18 mmol/L (22-29); Chloride 104 mmol/L (96-108); Creatinine Clr Calc Pharmacy 119.8; Estimated Glomerular Filt Rate > 60; Glucose Random 120 mg/dL (60-115); HCG Quantitative < 2 mIU/mL; Lipase 24 U/L (8-78); Potassium 3.9 mmol/L (3.3-5.1); Sodium 131 mmol/L (135-145); Total Protein 8.1 g/dL (6.5-8.0)
[2021-10-06 05:52] LABS: COVID-19 Test Negative (Negative)
[2021-10-06] MEDS: iohexoL 350 MG/ML 100 ML INFUS..BTL IV (06:23)
[2021-10-06 07:19] LABS: UPreg QC Valid YES; Urine Pregnancy NEGATIVE (NEGATIVE)
[2021-10-06 07:20] LABS: Appearance Urine CLOUDY; Color Urine YELLOW; Glucose Urine UA NEG (NEG); Leukocyte Esterase Urine NEG (NEG); Nitrite Urine POS (NEG); Specific Gravity - Urine >= 1.030 (1.005-1.025); UACC Culture Trigger YES; Urine Blood 3+ (NEG); Urine Ketones NEG (NEG); Urine Protein 1+ MG/DL (NEG-TRACE)
[2021-10-06 07:21] LABS: Bacteria Urine 2+ /LPF; Squamous Epithelial Cell Urine 1+ /LPF
== END 2021-10-06 03:30 | disposition home or self-care (01) ==
PROVIDERS: Emergency Provider Student in an Organized Health Care Education/Training Program; PCP Internal Medicine
DX: K80.20 Calculus of gallbladder without cholecystitis without obstruction (principal); R10.9 Unspecified abdominal pain; Z20.822 Contact with and (suspected) exposure to COVID-19; R11.2 Nausea with vomiting, unspecified; E66.01 Morbid (severe) obesity due to excess calories
CPT/HCPCS: 36415; 74177; 80053; 81001; 81025; 83690; 84702; 85025; 87086; 87635; 99282; 99285; Q9967

== ENCOUNTER → 2021-11-03 10:45 | Outpatient (BNVA) | payer OTHER, SELFPAY | PROVIDERS: PCP Internal Medicine; Referring Provider Internal Medicine; Visit Provider Surgery | DX: K80.20 Calculus of gallbladder without cholecystitis without obstruction (principal); E66.01 Morbid (severe) obesity due to excess calories; Z68.43 Body mass index [BMI] 50.0-59.9, adult | CPT/HCPCS: 99202 ==

== ENCOUNTER 2022-05-01 14:38 | Emergency (ER) | payer OTHER, SELFPAY ==
[2022-05-01 14:44] VITALS: BP 158/88; PULSE 93; RESP 16; TEMP 36.2; O2SAT 99; BMI 59.1
[2022-05-01 15:11] LABS: Hematocrit 40.4 % (37.0-47.0); Hemoglobin 11.4 g/dl (12.0-16.0); Mean Corpuscular HGB Conc 28.2 g/dl (31.0-35.0); Mean Corpuscular Hemoglobin 18.3 pg (27.0-33.0); Red Blood Count 6.24 X10*6/uL (4.20-5.50); Red Cell Distribution Width 23.3 % (11.0-16.0)
[2022-05-01 15:12] LABS: Mean Corpuscular Volume 64.7 fL (80.0-98.0)
[2022-05-01 15:13] LABS: PLT ABN DIST 1
[2022-05-01 15:19] LABS: Alanine Aminotransferase 23 U/L (0-31); Albumin Level 4.2 g/dL (3.5-5.0); Alkaline Phosphatase 69 U/L (39-117); Anion Gap 14 (12-20); Aspartate Amino Transferase 27 U/L (5-31); Bilirubin Total 0.3 mg/dL (0.0-1.0); Blood Urea Nitrogen 10 mg/dL (9-16); Calcium 9.4 mg/dL (8.4-10.2); Carbon Dioxide 15 mmol/L (22-29); Chloride 109 mmol/L (96-108); Creatinine Clr Calc Pharmacy 124.4; Estimated Glomerular Filt Rate > 60; Glucose Random 139 mg/dL (60-115); Lipase 36 U/L (8-78); Potassium 4.3 mmol/L (3.3-5.1); Sodium 134 mmol/L (135-145); Total Protein 8.2 g/dL (6.5-8.0)
[2022-05-01 15:36] LABS: Platelet Count 107 X10*3/uL (160-400); White Blood Count 5.4 X10*3/uL (4.8-10.8)
--- NOTE | 2022-05-01 16:25 | ED_ITS ---
HPI - Abdominal Pain General Chief Complaint: Abdominal Pain Stated Complaint: abd pain Time Seen by Provider: 05/01/22 16:23 Source: patient Mode of arrival: ambulatory Limitations: no limitations History of Present Illness HPI narrative: 21 yo female with history of gallstones presents with 3 days of epigastric pain. She also reports loose stools and having diarrhea, 5-6 episodes per day. She also reports subjective fever 3 nights ago. She reports the pain is worse after eating, she last ate [employer] 2 hours ago and developed 8/10 epigastric abdominal pain. Does not radiate to her back. She previously saw Dr. Shannon for evaluation of her gallstones, with plan to treat conservatively with dietary modifications. Patient denies any nausea, vomiting. She also reports new onset of dysuria that started today. MD elicited complaint: abdominal pain Pertinent past history: other (Gallstone) Onset (ago): day(s) (3) Pain Consistency: constant Location: epigastric and RUQ Severity: moderate Pain scale (0-10): 8 Quality: stabbing Radiation: none Migration to: no migration Exacerbating factors: eating Relieving factors: nothing Context: history of similar episodes Associated symptoms: diarrhea Related Data Previous Rx's Medication Instructions Recorded cyclobenzaprine 10 mg tablet 10 mg PO TID PRN muscle spasm #10 07/25/21 tabs ibuprofen 600 mg tablet 600 mg PO Q8H PRN pain #20 tabs 07/25/21 lidocaine 5 % topical patch 1 patch topical DAILY #15 ea 07/25/21 (Lidoderm) cephalexin 500 mg tablet 500 mg PO QID 7 days #28 tabs 09/11/21 doxycycline hyclate 100 mg capsule 100 mg PO BID 7 days #14 caps 09/11/21 metoprolol succinate 50 mg 50 mg PO DAILY #90 tabs 04/12/22 tablet,extended release 24 hr nitrofurantoin 100 mg PO Q12H 5 days #10 caps 05/01/22 monohydrate/macrocrystals 100 mg capsule (Macrobid) Allergies Allergy/AdvReac Type Severity Reaction Status Date / Time No Known Allergies Allergy Verified 05/01/22 14:47 Review of Systems Review of Systems Constitutional: No Fever, No Chills ENT/Mouth: No sore throat, No Rhinorrhea, No Swallowing Difficulty Cardiovascular: No Chest Pain, No SOB, No Orthopnea, No Edema Respiratory: No Cough, No Sputum, No Wheezing, No dyspnea Gastrointestinal: No Nausea, No Vomiting, + Diarrhea, + abdominal Pain, No Hematochezia, No Melena Genitourinary: + Dysuria, No Urinary Frequency, No Hematuria Musculoskeletal: No joint pain, No Myalgias Skin: No Skin Lesions, No rash Neuro: No Weakness, No Numbness, No Dizziness, No Headache Psych: No Anxiety/Panic, No Depression Heme/Lymph: No Bruising, No Lymphadenopathy Endocrine: No Polyuria, No Polydipsia [facility] Past Medical History Medical History (Updated 05/01/22 @ 17:12 by JOSE Page) Gallstones Hypertensive retinopathy of both eyes Lumbago with sciatica, right side Morbid obesity Family History Family History (Updated 11/03/21 @ 10:55 by ONEIL Suarez) Maternal Aunt Breast cancer Family/Other Breast cancer Social History Social History (Updated 11/03/21 @ 10:56 by ONEIL Suarez) Alcohol intake: current Patient Tobacco Use Status: Never used Tobacco Physical Exam ED Vital Signs: Vital Signs - 24 hr 05/01/22 14:44 Temperature 97.2 F Pulse Rate 93 Respiratory Rate 16 Blood Pressure 158/88 H Pulse Oximetry 99 Oxygen Delivery Method Room Air BMI result Body Mass Index 59.1 Appearance: Alert. Oriented X3. No acute distress. Eyes: Pupils equal, round and reactive to light. ENT: Pharynx normal. Neck: Normal inspection. Neck supple. CVS: Normal heart rate and rhythm. Pulses normal. Respiratory: No respiratory distress. Breath sounds normal. Abdomen: Obhese, Soft with mild epigastric tenderness, and RUQ tenderness with negative Lopez's sign, normal. +BS x4 Skin: Skin warm and dry. Normal skin color. Normal skin turgor. No rashes. Extremities: No lower extremity edema. Neuro: Oriented X 3. Grossly normal, nonfocal Course Course Course Narrative: 21-year-old female with history of gallstones, obesity who presents to the ER with 3 days of epigastric postprandial pain. On examination she has some mild epigastric tenderness and some mild right upper quadrant tenderness. She is nontoxic-appearing. She last ate [employer] earlier today in the pain got worse at that time. Her LFTs are normal, normal alk-phos. Normal lipase. She is most likely experiencing biliary colic her dietary indiscretions. She also may have component of GERD or acid reflux, she has a history of this and only intermittently takes Pepcid. Will give a trial of the GI cocktail. We discussed the importance of dietary compliance and need for follow-up with General surgery. She expressed understanding. Given her new onset of dysuria will check a UA. Reevaluation(s) Reevaluation #1: UA is consistent with infection with positive nitrates. Will start on Macrobid for a 5 day course. MDM - Abdominal Pain Lab Data Result diagrams: 05/01/22 14:56 05/01/22 14:56 Labs: Lab Results 05/01/22 05/01/22 05/01/22 Range/Units 14:56 14:56 16:59 WBC 5.4 (4.8-10.8) X10*3/uL RBC 6.24 H (4.20-5.50) X10*6/uL Hgb 11.4 L (12.0-16.0) g/dl Hct 40.4 (37.0-47.0) % MCV 64.7 L (80.0-98.0) fL MCH 18.3 L (27.0-33.0) pg MCHC 28.2 L (31.0-35.0) g/dl RDW 23.3 H (11.0-16.0) % Plt Count 107 L D (160-400) X10*3/uL MPV TNP Absolute Nucleated RBC 0.000 (0.0-0.012) X10*3/uL Nucleated RBC % (auto) 0.0 (0.0-0.2) /100WBC Sodium 134 L (135-145) mmol/L Potassium 4.3 (3.3-5.1) mmol/L Chloride 109 H (96-108) mmol/L Carbon Dioxide 15 L (22-29) mmol/L Anion Gap 14 (12-20) BUN 10 (9-16) mg/dL Creatinine 0.78 (0.5-1.4) mg/dL Estim Creat Clear Calc 124.4 Estimated GFR > 60 Random Glucose 139 H (60-115) mg/dL Calcium 9.4 D (8.4-10.2) mg/dL Total Bilirubin 0.3 (0.0-1.0) mg/dL AST 27 D (5-31) U/L ALT 23 (0-31) U/L Alkaline Phosphatase 69 (39-117) U/L Total Protein 8.2 H (6.5-8.0) g/dL Albumin 4.2 (3.5-5.0) g/dL Lipase 36 (8-78) U/L Beta HCG, Quant < 2 mIU/mL Urine Color YELLOW Urine Appearance CLOUDY Urine pH 5.5 (5.0-8.0) Ur Specific Painter >= 1.030 H (1.005-1.025) Urine Protein TRACE (NEG-TRACE) MG/DL Urine Glucose (UA) NEG (NEG) MG/DL Urine Ketones NEG (NEG) MG/DL Urine Blood TRACE (NEG) Urine Nitrite POS H (NEG) Ur Leukocyte Esterase TRACE H (NEG) Critical Care Time Critical Care Time Critical Care Time: No Discharge Plan Discharge Clinical Impression: Biliary colic, UTI (urinary tract infection) Patient Disposition: Home, Self-Care Instructions: Biliary Colic (ED), Urinary Tract Infection in Women (ED) Additional Instructions: Your urine test showed evidence of urinary tract infection. Take the prescribed antibiotic as directed, complete the entire course. Rest and drink plenty of fluids. No sexual activity until all the symptoms are completely resolved you are off of antibiotics. Your lab workup today was unremarkable. Your pain is most likely due to either gallbladder spasm from eating greasy food and/or gastritis which is and irritation and inflammation of your stomach lining. Start taking Priolsec daily. Stick to a bland diet. Avoid foods high in acid, avoid alcohol and NSAID medications like Aleve, Motrin, Advil or ibuprofen. Recommend over the counter Imodium as needed for diarrhea. Follow up with your doctor as needed. Follow up with Surgery provider if your symptoms persist despite dietary mo difications and medication. If you develop new or worsening symptoms call 911 or come back to the ER for further evaluation. Yarbrough an?lisis de orina mostr? evidencia de infecci?n del tracto urinario. [place] el antibi?omi recetado seg?n las indicaciones, complete todo el curso. Descanse y brady muchos l?quidos. Ninguna actividad sexual hasta que todos los s?ntomas se resuelvan por completo y no tome antibi?ticos. Tu an?lisis de laboratorio de hoy no tuvo nada especial. Lo m?s probable es que yarbrough dolor se deba a un espasmo de la ves?cula biliar por comer alimentos grasosos y/o gastritis, que es darien irritaci?n e inflamaci?n del revestimiento del est?edmond. Empiece a tesha Priolsec a diario. Seguir darien dieta blanda. Evite los alimentos con alto contenido de ?cido, evite el alcohol y los medicamentos OBDULIA rehan Aleve, Motrin, Advil o ibuprofeno. Recomiende Imodium de venta alysia seg?n sea necesario para la diarrea. Yuri un seguimiento con yarbrough m?dico seg?n sea necesario. Yuri un seguimiento con el proveedor de cirug?a si bryan s?ntomas persisten a pesar de las modificaciones en la dieta y la medicaci?n. Si desarrolla s?ntomas nuevos o que empeoran, llame al 911 o regrese a la john de emergencias para darien evaluaci?n adicional. Prescriptions: New nitrofurantoin monohyd/m-cryst [Macrobid] 100 mg capsule 100 mg PO Q12H 5 Days Qty: 10 0RF Rx Instructions: must administer with a meal/food No Action metoprolol succinate 50 mg tablet extended release 24 hr 50 mg PO DAILY Qty: 90 1RF Rx Instructions: Call to schedule next PCP appt for more refills cyclobenzaprine 10 mg tablet 10 mg PO TID PRN (Reason: muscle spasm) Qty: 10 0RF lidocaine [Lidoderm] 5 % adhesive patch,medicated 1 patch topical DAILY Qty: 15 0RF Rx Instructions: leave on most painful area for up to 12 hrs ibuprofen 600 mg tablet 600 mg PO Q8H PRN (Reason: pain) Qty: 20 0RF cephalexin 500 mg tablet 500 mg PO QID 7 Days Qty: 28 0RF doxycycline hyclate 100 mg capsule 100 mg PO BID 7 Days Qty: 14 0RF Referrals: Raffi Shannon MD [Physician] - (Biliary colic)
[2022-05-01 17:00] LABS: HCG Quantitative < 2 mIU/mL
[2022-05-01] MEDS: PHENobarb/Hyoscy/Atropine/Scop 10 ML ELIXIR PO (17:00)
[2022-05-01] MEDS: Lidocaine HCl Viscous 2 % 15 ML SOLUTION MUCOUS MEM (17:00)
[2022-05-01] MEDS: Magnesium Hydrox/Alum Hydrox 30 ML ORAL.SUSP PO (17:00)
[2022-05-01 17:07] LABS: Appearance Urine CLOUDY; Color Urine YELLOW; Glucose Urine UA NEG (NEG); Leukocyte Esterase Urine TRACE (NEG); Nitrite Urine POS (NEG); PH 5.5 (5.0-8.0); Specific Gravity - Urine >= 1.030 (1.005-1.025); UACC Culture Trigger YES; Urine Blood TRACE (NEG); Urine Ketones NEG (NEG); Urine Protein TRACE MG/DL (NEG-TRACE)
[2022-05-01 17:56] LABS: Amorphous Sediment Urine 3+ /LPF; Bacteria Urine TRACE /LPF; RBC Urine 0-2 /HPF (0); Squamous Epithelial Cell Urine 3+ /LPF
== END 2022-05-02 03:49 | disposition home or self-care (01) ==
PROVIDERS: Physician Assistant; Emergency Provider Emergency Medicine; PCP Internal Medicine
DX: K80.50 Calculus of bile duct without cholangitis or cholecystitis without obstruction (principal); N39.0 Urinary tract infection, site not specified; B95.1 Streptococcus, group B, as the cause of diseases classified elsewhere
CPT/HCPCS: 36415; 80053; 81001; 83690; 84702; 85027; 87086; 87147; 99283

== ENCOUNTER 2022-06-17 11:46 | Emergency (ER) | payer OTHER, SELFPAY ==
[2022-06-17 13:51] VITALS: BP 147/79; PULSE 112; RESP 18; TEMP 36.7; O2SAT 98; BMI 61.2
[2022-06-17 14:14] LABS: Basophils Absolute Auto 0.1 X10*3/uL (0.0-0.2); Basophils Percent Auto 0.4 % (0-2); Hematocrit 40.9 % (37.0-47.0); Hemoglobin 12.4 g/dl (12.0-16.0); Imm Gran Abs Auto 0.09 X10*3/uL (0.00-0.03); Imm Gran Pct Auto 0.4 % (0.0-0.4); Lymphocytes Absolute Auto 0.9 X10*3/uL (1.2-4.9); Lymphocytes Percent Auto 4.6 % (20-40); MANUAL DIFF FLAG SCAN; Mean Corpuscular HGB Conc 30.3 g/dl (31.0-35.0); Mean Corpuscular Hemoglobin 19.9 pg (27.0-33.0); Mean Corpuscular Volume 65.7 fL (80.0-98.0); Mean Platelet Volume 9.1 fL (9.4-12.3); Monocytes Absolute Auto 0.9 X10*3/uL (0.1-1.2); Monocytes Percent Auto 4.3 % (2-11); Neutrophils Absolute Auto 18.5 x10*3/uL (2.0-8.3); Neutrophils Percent Auto 90.3 % (45-73); Platelet Count 289 X10*3/uL (160-400); Red Blood Count 6.23 X10*6/uL (4.20-5.50); Red Cell Distribution Width 21.9 % (11.0-16.0); SCAN SMEAR FLAG 1; White Blood Count 20.5 X10*3/uL (4.8-10.8)
[2022-06-17 14:30] LABS: Alanine Aminotransferase 22 U/L (0-31); Albumin Level 4.3 g/dL (3.5-5.0); Alkaline Phosphatase 71 U/L (39-117); Anion Gap 16 (12-20); Aspartate Amino Transferase 23 U/L (5-31); Bilirubin Total 0.7 mg/dL (0.0-1.0); Blood Urea Nitrogen 12 mg/dL (9-16); Calcium 9.5 mg/dL (8.4-10.2); Carbon Dioxide 19 mmol/L (22-29); Chloride 102 mmol/L (96-108); Creatinine Clr Calc Pharmacy 127.3; Estimated Glomerular Filt Rate > 60; Glucose Random 114 mg/dL (60-115); Potassium 4.2 mmol/L (3.3-5.1); Sodium 133 mmol/L (135-145); Total Protein 8.5 g/dL (6.5-8.0)
[2022-06-17 14:43] LABS: SLIDE REVIEW VERIFIED
== END 2022-06-17 17:50 | disposition home or self-care (01) ==
LOC: HO.ED 17:41
PROVIDERS: Emergency Provider Emergency Medicine; PCP Internal Medicine
DX: L03.115 Cellulitis of right lower limb (principal); Z79.899 Other long term (current) drug therapy
CPT/HCPCS: 36415; 80053; 85025; 99281; 99283

== ENCOUNTER 2022-10-08 05:30 | Emergency (ER) | payer OTHER, SELFPAY ==
--- NOTE | ~2022-10-08 | XR_ITS ---
EXAMINATION: XR CHEST CLINICAL INFORMATION: Rule out pneumonia. Pain. COMPARISON: Chest radiograph 10/03/2021. TECHNIQUE: Frontal view of the chest was obtained. FINDINGS: No significant abnormality is noted involving the heart, lungs, mediastinum, bony thorax or soft tissues. XR/XR chest 1V IMPRESSION: Unremarkable examination.
--- NOTE | 2022-10-08 05:43 | ED_ITS ---
HPI - URI/Sore Throat General Chief Complaint: General Medical Stated Complaint: flu like symptoms Time Seen by Provider: 10/08/22 05:39 Source: patient Mode of arrival: ambulatory Limitations: no limitations History of Present Illness HPI Narrative: Patient comes to the emergency room complaining of cough, headache, flu-like symptoms for 2 weeks. Patient comes to emergency room with her older sister was the same symptoms. Patient complaining of subjective fever, chills. No nausea vomiting diarrhea Related Data Previous Rx's Medication Instructions Recorded cyclobenzaprine 10 mg tablet 10 mg PO TID PRN muscle spasm #10 07/25/21 tabs ibuprofen 600 mg tablet 600 mg PO Q8H PRN pain #20 tabs 07/25/21 lidocaine 5 % topical patch 1 patch topical DAILY #15 ea 07/25/21 (Lidoderm) cephalexin 500 mg tablet 500 mg PO QID 7 days #28 tabs 09/11/21 doxycycline hyclate 100 mg capsule 100 mg PO BID 7 days #14 caps 09/11/21 metoprolol succinate 50 mg 50 mg PO DAILY #90 tabs 04/12/22 tablet,extended release 24 hr nitrofurantoin 100 mg PO Q12H 5 days #10 caps 05/01/22 monohydrate/macrocrystals 100 mg capsule (Macrobid) benzonatate 100 mg capsule 100 mg PO TID PRN cough #14 caps 10/08/22 Allergies Allergy/AdvReac Type Severity Reaction Status Date / Time No Known Allergies Allergy Verified 10/08/22 05:51 Review of Systems Review of Systems: Constitutional : No Weight loss, complaining of subjective fever, chills, fatigue and generalized malaise ENT/Mouth : No Hearing loss, No Ear Pain, No Nasal Congestion, No Sinus Pain, No Hoarseness, No sore throat, No Rhinorrhea, No Swallowing Difficulty Eyes: No Eye Pain, No Swelling, No Redness, No Foreign Body, No Discharge, No Vision Changes Cardiovascular : No Chest Pain, No SOB, No Dyspnea on Exertion, No Orthopnea, No Edema, No Palpitations Respiratory : Complain of coughing, no wheezing, no dyspnea Gastrointestinal : No Nausea, No Vomiting, No Diarrhea, No Constipation, No abdominal Pain, No Hematochezia, No Melena Genitourinary : no irregular bleeding, No Dysuria, No Urinary Frequency, No Hematuria, No Urinary Incontinence, No Urgency, No Flank Pain, No Urinary Flow Changes, No Hesitancy Musculoskeletal : No joint pain, No Myalgias, No Joint Swelling Skin : No Skin Lesions, No rash Neuro : No Weakness, No Numbness, No Paresthesias, No Loss of Consciousness, No Dizziness, No Headache Psych : No Anxiety/Panic, No Depression, No SI/HI/AH/VH, No Social Issues, Heme/Lymph: No Bruising, No Bleeding,No Lymphadenopathy Endocrine : No Polyuria, No Polydipsia, No Temperature Intolerance [facility] Past Medical History Medical History Gallstones Hypertensive retinopathy of both eyes Lumbago with sciatica, right side Morbid obesity Family History Family History (Updated 11/03/21 @ 10:55 by ONEIL Suarez) Maternal Aunt Breast cancer Family/Other Breast cancer Social History Social History (Updated 11/03/21 @ 10:56 by ONEIL Suarez) Alcohol intake: current Patient Tobacco Use Status: Never used Tobacco Advance Directives: No Advance Directives Information Provided: Yes Physical Exam Vital Signs: Vital Signs: Last Vital Signs Temp 98.3 F 10/08/22 05:44 Pulse 122 H 10/08/22 05:44 Resp 20 10/08/22 05:44 BP 145/78 H 10/08/22 05:44 Pulse Ox 99 10/08/22 05:44 O2 Del Method 10/08/22 05:44 BMI result Body Mass Index 62.7 Const: Other: Appearance: Alert. Oriented X3. No acute distress. Eyes: Pupils equal, round and reactive to light. ENT: Pharynx normal. Neck: Normal inspection. Neck supple. No lymph nodes noted. No crepitus CVS: Normal heart rate and rhythm. Pulses normal. Normal S1 and S2 Respiratory: No respiratory distress. Breath sounds normal. No Wheezing. No rales Abdomen: Soft and nontender. No rigidity. No distention. Skin: Skin warm and dry. Normal skin color. Normal skin turgor. Extremities: No lower extremity edema. No Lacerations. No Rash Neuro: Oriented X 3. No motor deficit. No sensory deficit. Moving all extremities. No slurred speech. CN 2 through 12 grossly intact Psych: calm, cooperative, normal affect Course Course Course Narrative: Patient's physical exam with normal limits, no wheezing. Patient's serology tests pending Patient's serology is negative for influenza or COVID. Chest x-ray negative. Patient likely having viral bronchitis. Medical Decision Making Differential Diagnosis Differential Diagnoses: The differential diagnosis associated with the presentation includes (Pneumonia, bronchitis, COVID, influenza) Lab Data MDM Lab Attestation statement: I reviewed the patient's lab results. Labs: Lab Results 10/08/22 10/08/22 Range/Units 05:52 05:52 COVID-19 ([facility]) Negative (Negative) COVID-19 Clin Com See Note Influenza Type A ([facility]) Negative (Negative) Influenza Type B (IAIN) Negative (Negative) Influenza A & B Note See Note Independent Interpretation I performed an independent interpretation of an: Plain X-Ray (My interpretation of the chest x-ray shows no infiltrates) Radiology Impression Discussion of test interpretation with radiology: I have reviewed the radiologist's reading. Radiologist Impression: FINDINGS: No significant abnormality is noted involving the heart, lungs, mediastinum, bony thorax or soft tissues. XR/XR chest 1V IMPRESSION: Unremarkable examination. Discharge Plan Discharge Clinical Impression: Acute viral bronchitis Patient Disposition: Home, Self-Care Instructions: Acute Bronchitis (ED) Additional Instructions: Please follow-up with your primary care physician tomorrow. If you have any worsening or new symptoms, please return to the emergency room or call 911 Prescriptions: New benzonatate 100 mg capsule 100 mg PO TID PRN (Reason: cough) Qty: 14 0RF No Action metoprolol succinate 50 mg tablet extended release 24 hr 50 mg PO DAILY Qty: 90 1RF Rx Instructions: Call to schedule next PCP appt for more refills cyclobenzaprine 10 mg tablet 10 mg PO TID PRN (Reason: muscle spasm) Qty: 10 0RF lidocaine [Lidoderm] 5 % adhesive patch,medicated 1 patch topical DAILY Qty: 15 0RF Rx Instructions: leave on most painful area for up to 12 hrs ibuprofen 600 mg tablet 600 mg PO Q8H PRN (Reason: pain) Qty: 20 0RF cephalexin 500 mg tablet 500 mg PO QID 7 Days Qty: 28 0RF doxycycline hyclate 100 mg capsule 100 mg PO BID 7 Days Qty: 14 0RF nitrofurantoin monohyd/m-cryst [Macrobid] 100 mg capsule 100 mg PO Q12H 5 Days Qty: 10 0RF Rx Instructions: must administer with a meal/food
[2022-10-08 05:44] VITALS: BP 145/78; PULSE 122; RESP 20; TEMP 36.8; O2SAT 99; BMI 62.7
[2022-10-08 06:12] LABS: COVID-19 Test Negative (Negative); IDNOW Serial# 55D5AD1C; Influenza A Negative (Negative); Influenza B2 Negative (Negative)
== END 2022-10-08 06:45 | disposition home or self-care (01) ==
PROVIDERS: Emergency Provider Emergency Medicine; PCP Internal Medicine
DX: J20.8 Acute bronchitis due to other specified organisms (principal); Z20.822 Contact with and (suspected) exposure to COVID-19
CPT/HCPCS: 71045; 87502; 87635; 99282; 99283

== ENCOUNTER 2022-10-25 11:00 | Outpatient (REF) | payer OTHER, SELFPAY ==
[2022-10-25 14:12] LABS: MANUAL DIFF FLAG NO
[2022-10-25 14:17] LABS: Basophils Absolute Auto 0.1 X10*3/uL (0.0-0.2); Basophils Percent Auto 0.7 % (0-2); Eosinophils Absolute Auto 0.4 X10*3/uL (0.0-0.4); Hematocrit 35.2 % (37.0-47.0); Hemoglobin 9.8 g/dl (12.0-16.0); Imm Gran Abs Auto 0.04 X10*3/uL (0.00-0.03); Imm Gran Pct Auto 0.4 % (0.0-0.4); Lymphocytes Absolute Auto 2.6 X10*3/uL (1.2-4.9); Lymphocytes Percent Auto 26.7 % (20-40); Mean Corpuscular HGB Conc 27.8 g/dl (31.0-35.0); Mean Corpuscular Hemoglobin 19.1 pg (27.0-33.0); Mean Corpuscular Volume 68.8 fL (80.0-98.0); Monocytes Absolute Auto 0.7 X10*3/uL (0.1-1.2); Neutrophils Percent Auto 61.2 % (45-73); Platelet Count 334 X10*3/uL (160-400); Red Blood Count 5.12 X10*6/uL (4.20-5.50); Red Cell Distribution Width 18.2 % (11.0-16.0); White Blood Count 9.8 X10*3/uL (4.8-10.8)
[2022-10-25 14:44] LABS: Alanine Aminotransferase 18 U/L (0-31); Anion Gap 11 (12-20); Aspartate Amino Transferase 19 U/L (5-31); Blood Urea Nitrogen 14 mg/dL (9-16); Calcium 9.4 mg/dL (8.4-10.2); Carbon Dioxide 24 mmol/L (22-29); Chloride 106 mmol/L (96-108); Cholesterol 107 mg/dL; Estimated Glomerular Filt Rate > 60; Glucose Fasting 112 mg/dL (60-99); HDL Cholesterol 38 mg/dL; LDL Cholesterol Calculated 52 mg/dl; Potassium 4.1 mmol/L (3.3-5.1); Sodium 137 mmol/L (135-145); Triglycerides 89 mg/dL
[2022-10-25 15:08] LABS: TSH reflex Free T4 2.61 uIU/mL (0.32-4.0); Vitamin D 25-OH Total 9.4 ng/mL (>30)
== END 2022-10-25 11:01 | disposition home or self-care (01) ==
LOC: HO.HMGCLDS 11:00
PROVIDERS: PCP Internal Medicine; Visit Provider Internal Medicine
DX: E66.01 Morbid (severe) obesity due to excess calories (principal); R00.2 Palpitations; H35.033 Hypertensive retinopathy, bilateral
CPT/HCPCS: 36415; 80048; 80061; 82306; 84443; 84450; 84460; 85025

== ENCOUNTER 2023-01-07 16:43 | Emergency (ER) | payer OTHER, SELFPAY ==
--- NOTE | ~2023-01-07 | US_ITS ---
EXAMINATION: US VENOUS ULTRASOUND WITH DOPPLER LOWER EXTREMITY, RIGHT CLINICAL INFORMATION: Swelling and calf pain. Redness. COMPARISON: Ultrasound right lower venous study 09/11/2021. TECHNIQUE: Ultrasound of the deep veins is performed from the hip to the calf with compression sonography and color and pulse Doppler assessment. Spectral analysis with color-flow imaging is performed. FINDINGS: There is normal venous compression and respiratory variation and augmented flow. The visualized common femoral vein, superficial femoral vein, profunda femoral vein, popliteal vein, and the trifurcation region shows no evidence of deep venous thrombosis. The mid femoral vein and calf veins are suboptimally visualized. Incidental finding of enlarged right groin lymph nodes similar previous ultrasound 09/11/2021. There is normal central echogenic medulla and ulna lymph nodes. The largest lymph node measures 3.9 x 2.2 x 2.9 cm and appears lobulated. There is no significant popliteal fossa cyst. If the patient's symptoms persist, followup ultrasound in 5 days 7 days might be of value to exclude proximal propagation from a non-visualized calf vein. US/US venous duplex LE RT IMPRESSION: 1. No DVT demonstrated in the right lower extremity. The mid femoral and calf veins are suboptimally visualized. 2. Enlarged right groin lymph nodes.
--- NOTE | 2023-01-07 16:51 | ED_ITS ---
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 Patient reports ?I think I have cellulitis. ? Patient reports that she has a history of same. She reports her symptoms started yesterday. She reports subjective fevers the her temperature on arrival is 98.7 She complains of 7/10 pain to the right lower extremity Denies any history of DVTs <César Gatica - Last Filed: 01/07/23 18:24> Related Data Home medications: Previous Rx's Medication Instructions Recorded metoprolol succinate 50 mg 50 mg PO DAILY #90 tabs 10/14/22 tablet,extended release 24 hr cephalexin 500 mg capsule 500 mg PO QID #28 caps 01/07/23 doxycycline hyclate 100 mg tablet 100 mg PO BID #14 tabs 01/07/23 <JOSE Landin - Last Filed: 01/07/23 16:52> Allergies/adverse reactions: Allergies Allergy/AdvReac Type Severity Reaction Status Date / Time No Known Allergies Allergy Verified 10/25/22 10:40 <JOSE Landin - Last Filed: 01/07/23 16:52> Review of Systems Constitutional: Constitutional: Reports as per HPI, Denies fatigue, Reports fever(s) and Denies headache(s) <César Gatica - Last Filed: 01/07/23 18:24> ENT: Denies headache(s) <César Gatica - Last Filed: 01/07/23 18:24> Cardiovascular: Cardiovascular: Denies chest pain and Denies dyspnea <César Gatica - Last Filed: 01/07/23 18:24> Respiratory: Respiratory: Denies cough and Denies dyspnea <César O'Rhea - Last Filed: 01/07/23 18:24> Gastrointestinal: Gastrointestinal: Denies abdominal pain, Denies constipation and Denies vomiting <César KnottRhea - Last Filed: 01/07/23 18:24> Genitourinary: Genitourinary: Denies dysuria <César KnottRhea - Last Filed: 01/07/23 18:24> Musculoskeletal: Comments: That reports right leg redness and pain <César Gatica - Last Filed: 01/07/23 18:24> Integumentary/Breasts: Skin/Breast: Reports erythema and Denies wounds <César Gatica - Last Filed: 01/07/23 18:24> Neurologic: Denies headache(s) and Denies focal weakness <César Gatica - Last Filed: 01/07/23 18:24> Endocrine: Endocrine: Denies fatigue <César Gatica - Last Filed: 01/07/23 18:24> [facility] [place] Past Medical History Medical History: Medical History (Updated 01/07/23 @ 18:22 by César Gatica) Gallstones Hypertensive retinopathy of both eyes Lumbago with sciatica, right side Morbid obesity Palpitations Refused influenza vaccine Regular sinus tachycardia <JOSE Landin - Last Filed: 01/07/23 16:52> Family History Family History: Family History (Updated 10/25/22 @ 22:21 by Sarah Vergara MD) Maternal Aunt Breast cancer Family/Other Breast cancer Mother Thyroid disorder <JOSE Landin - Last Filed: 01/07/23 16:52> Social History Social History: Social History Housing: Apartment Alcohol intake: current Patient Tobacco Use Status: Never used Tobacco e-Cigarette/Vaping Use: Never Used Advance Directives: No Advance Directives Information Provided: No Current occupational status: employed Cognitive needs: No Hearing needs: No Vision needs: Yes <JOSE Landin - Last Filed: 01/07/23 16:52> Physical Exam ED Vital Signs: Vital Signs - 24 hr 01/07/23 16:52 Temperature 98.7 F Pulse Rate 117 H Respiratory Rate 20 Blood Pressure 171/83 H Pulse Oximetry 99 Oxygen Delivery Method Room Air BMI result Body Mass Index 60.7 <JOSE Landin - Last Filed: 01/07/23 16:52> Vital Signs - 24 hr 01/07/23 16:52 Temperature 98.7 F Pulse Rate 117 H Respiratory Rate 20 Blood Pressure 171/83 H Pulse Oximetry 99 Oxygen Delivery Method Room Air BMI result Body Mass Index 60.7 <César Gatica - Last Filed: 01/07/23 18:24> Const General: healthy appearing, comfortable, no acute distress, alert and awake <César O - Last Filed: 01/07/23 18:24> Nutritional Appearance: well nourished <César Alice - Last Filed: 01/07/23 18:24> Orientation/consciousness: patient oriented x3 <César O - Last Filed: 01/07/23 18:24> HENMT Head: Yes normocephalic and Yes atraumatic < - Last Filed: 01/07/23 18:24> Throat: Yes posterior oropharynx normal <César O - Last Filed: 01/07/23 18:24> Eyes Eyelids: Yes eyelids normal <César AliceFrancois - Last Filed: 01/07/23 18:24> Conjunctivae: conjunctivae normal <César Alice - Last Filed: 01/07/23 18:24> Sclerae: sclerae normal <César Alice - Last Filed: 01/07/23 18:24> Corneas: corneas normal <César Alice - Last Filed: 01/07/23 18:24> Pupils: Equal, round and reactive pupils present <César ORhea - Last Filed: 01/07/23 18:24> EOM: EOMs intact bilaterally <César AliceRhea - Last Filed: 01/07/23 18:24> Neck Neck: Yes full ROM <César O Last Filed: 01/07/23 18:24> Resp Effort & Inspection: normal respiratory effort, able to speak in complete sentences, no audible wheezes and not labored <César O Last Filed: 01/07/23 18:24> Auscultation: clear to auscultation bilaterally < Last Filed: 01/07/23 18:24> Cardio Rate: regular rate < Last Filed: 01/07/23 18:24> Rhythm: regular rhythm < - Last Filed: 01/07/23 18:24> GI Inspection: No distended <César Last Filed: 01/07/23 18:24> Palpation (GI): Soft to palpation, not firm, nontender, no guarding and not rigid < Last Filed: 01/07/23 18:24> Auscultation: normoactive bowel sounds <César O Last Filed: 01/07/23 18:24> Skin General skin exam: elasticity normal <César O Last Filed: 01/07/23 18:24> Neuro General: patient oriented x3 <César O Last Filed: 01/07/23 18:24> Cranial nerves: Yes CN's II-XII intact bilaterally, Yes Equal, round and reactive pupils present and Yes Bilaterally intact EOM present <César O Last Filed: 01/07/23 18:24> Cognition (Neuro): normal cognition <César O Last Filed: 01/07/23 18:24> Extrem Other: Moving all extremities well without any obvious deformities <César O Last Filed: 01/07/23 18:24> Course Course Course Narrative: RME performed by Kareen Souza PA-C. Patient is a 22 year old female presenting to the emergency department with right lower leg pain and swelling. Labs and US ordered. <JOSE Landin Last Filed: 01/07/23 16:52> Medical Decision Making Medical Decision Making MDM Narrative: 22 of female presents for evaluation of right lower leg pain, redness and swelling. She has a history of cellulitis in this appears clinically consistent. Patient ultrasound that was negative for DVT. She has a mild leukocytosis. She is afebrile but is tachycardic. She has a diagnosed history of tachycardia, so this is less likely to be indication of systemic infection. Will treat the patient with doxycycline and cephalexin as she has responded well to this in the past <César Gatica - Last Filed: 01/07/23 18:24> Differential Diagnosis Cellulitis DVT Lymphedema Abscess Dermatitis <César Gatica - Last Filed: 01/07/23 18:24> Lab Data [facility] Lab Attestation statement: I reviewed the patient's lab results. <César Gatica - Last Filed: 01/07/23 18:24> Mild leukocytosis to 11.7. Random glucose of 156. <César Gatica - Last Filed: 01/07/23 18:24> Result Diagrams: 01/07/23 17:01 01/07/23 17:01 <JOSE Landin - Last Filed: 01/07/23 16:52> Labs: Lab Results 01/07/23 01/07/23 01/07/23 Range/Units 17:01 17:01 17:01 WBC 11.7 H (4.8-10.8) X10*3/uL RBC 5.55 H (4.20-5.50) X10*6/uL Hgb 10.4 L (12.0-16.0) g/dl Hct 36.0 L (37.0-47.0) % MCV 64.9 L (80.0-98.0) fL MCH 18.7 L (27.0-33.0) pg MCHC 28.9 L (31.0-35.0) g/dl RDW 21.4 H (11.0-16.0) % Plt Count 266 (160-400) X10*3/uL MPV 9.6 (9.4-12.3) fL Immature Gran % (Auto) 0.5 H (0.0-0.4) % Neut % (Auto) 72.8 (45-73) % Lymph % (Auto) 17.8 L (20-40) % Bonner % (Auto) 8.3 (2-11) % Eos % (Auto) 0.2 (0-4) % Baso % (Auto) 0.4 (0-2) % Lymph # (Auto) 2.1 (1.2-4.9) X10*3/uL Bonner # (Auto) 1.0 (0.1-1.2) X10*3/uL Eos # (Auto) 0.0 (0.0-0.4) X10*3/uL Baso # (Auto) 0.1 (0.0-0.2) X10*3/uL Abs Immat Gran (auto) 0.06 H (0.00-0.03) X10*3/uL Absolute Neuts (auto) 8.5 H (2.0-8.3) x10*3/uL Absolute Nucleated RBC 0.000 (0.0-0.012) X10*3/uL Nucleated RBC % (auto) 0.0 (0.0-0.2) /100WBC ESR 39 H (0-20) MM/HR Sodium 134 L (135-145) mmol/L Potassium 3.6 (3.3-5.1) mmol/L Chloride 104 (96-108) mmol/L Carbon Dioxide 20 L (22-29) mmol/L Anion Gap 14 (12-20) BUN 9 (9-16) mg/dL Creatinine 0.83 (0.5-1.4) mg/dL Estim Creat Clear Calc 118.1 Estimated GFR > 60 Random Glucose 156 H (60-115) mg/dL Calcium 8.5 D (8.4-10.2) mg/dL Magnesium 2.0 (1.6-2.6) mg/dL Total Bilirubin 0.7 (0.0-1.0) mg/dL AST 29 (5-31) U/L ALT 22 (0-31) U/L Alkaline Phosphatase 63 (39-117) U/L C-Reactive Protein 11.36 H (< or = 0.50) mg/dL Total Protein 7.6 (6.5-8.0) g/dL Albumin 4.0 (3.5-5.0) g/dL <JOSE Landin - Last Filed: 01/07/23 16:52> Lab Results 01/07/23 01/07/23 01/07/23 Range/Units 17:01 17:01 17:01 WBC 11.7 H (4.8-10.8) X10*3/uL RBC 5.55 H (4.20-5.50) X10*6/uL Hgb 10.4 L (12.0-16.0) g/dl Hct 36.0 L (37.0-47.0) % MCV 64.9 L (80.0-98.0) fL MCH 18.7 L (27.0-33.0) pg MCHC 28.9 L (31.0-35.0) g/dl RDW 21.4 H (11.0-16.0) % Plt Count 266 (160-400) X10*3/uL MPV 9.6 (9.4-12.3) fL Immature Gran % (Auto) 0.5 H (0.0-0.4) % Neut % (Auto) 72.8 (45-73) % Lymph % (Auto) 17.8 L (20-40) % Bonner % (Auto) 8.3 (2-11) % Eos % (Auto) 0.2 (0-4) % Baso % (Auto) 0.4 (0-2) % Lymph # (Auto) 2.1 (1.2-4.9) X10*3/uL Bonner # (Auto) 1.0 (0.1-1.2) X10*3/uL Eos # (Auto) 0.0 (0.0-0.4) X10*3/uL Baso # (Auto) 0.1 (0.0-0.2) X10*3/uL Abs Immat Gran (auto) 0.06 H (0.00-0.03) X10*3/uL Absolute Neuts (auto) 8.5 H (2.0-8.3) x10*3/uL Absolute Nucleated RBC 0.000 (0.0-0.012) X10*3/uL Nucleated RBC % (auto) 0.0 (0.0-0.2) /100WBC ESR 39 H (0-20) MM/HR Sodium 134 L (135-145) mmol/L Potassium 3.6 (3.3-5.1) mmol/L Chloride 104 (96-108) mmol/L Carbon Dioxide 20 L (22-29) mmol/L Anion Gap 14 (12-20) BUN 9 (9-16) mg/dL Creatinine 0.83 (0.5-1.4) mg/dL Estim Creat Clear Calc 118.1 Estimated GFR > 60 Random Glucose 156 H (60-115) mg/dL Calcium 8.5 D (8.4-10.2) mg/dL Magnesium 2.0 (1.6-2.6) mg/dL Total Bilirubin 0.7 (0.0-1.0) mg/dL AST 29 (5-31) U/L ALT 22 (0-31) U/L Alkaline Phosphatase 63 (39-117) U/L C-Reactive Protein 11.36 H (< or = 0.50) mg/dL Total Protein 7.6 (6.5-8.0) g/dL Albumin 4.0 (3.5-5.0) g/dL <César Gatica - Last Filed: 01/07/23 18:24> Discharge Plan Discharge Clinical Impression: Cellulitis of right lower leg <JOSE Landin - Last Filed: 01/07/23 16:52> Patient Disposition: Home, Self-Care <JOSE Landin - Last Filed: 01/07/23 16:52> Instructions: Cellulitis (ED) <JOSE Landin - Last Filed: 01/07/23 16:52> Additional Instructions: You have an infection of your right lower leg consistent with cellulitis. Take both antibiotics as directed. Use Motrin or Tylenol for any fevers <JOSE Landin - Last Filed: 01/07/23 16:52> Prescriptions: New doxycycline hyclate 100 mg tablet 100 mg PO BID Qty: 14 0RF cephalexin 500 mg capsule 500 mg PO QID Qty: 28 0RF No Action metoprolol succinate 50 mg tablet extended release 24 hr 50 mg PO DAILY Qty: 90 1RF Rx Instructions: Call to schedule next PCP appt for more refills <JOSE Landin - Last Filed: 01/07/23 16:52>
[2023-01-07 16:52] VITALS: BP 171/83; PULSE 117; RESP 20; TEMP 37.1; O2SAT 99; BMI 60.7
[2023-01-07 17:07] LABS: MANUAL DIFF FLAG NO
[2023-01-07 17:19] LABS: Basophils Absolute Auto 0.1 X10*3/uL (0.0-0.2); Basophils Percent Auto 0.4 % (0-2); Eosinophils Percent Auto 0.2 % (0-4); Hemoglobin 10.4 g/dl (12.0-16.0); Imm Gran Abs Auto 0.06 X10*3/uL (0.00-0.03); Imm Gran Pct Auto 0.5 % (0.0-0.4); Lymphocytes Absolute Auto 2.1 X10*3/uL (1.2-4.9); Lymphocytes Percent Auto 17.8 % (20-40); Mean Corpuscular HGB Conc 28.9 g/dl (31.0-35.0); Mean Corpuscular Hemoglobin 18.7 pg (27.0-33.0); Mean Platelet Volume 9.6 fL (9.4-12.3); Monocytes Percent Auto 8.3 % (2-11); Neutrophils Absolute Auto 8.5 x10*3/uL (2.0-8.3); Neutrophils Percent Auto 72.8 % (45-73); Platelet Count 266 X10*3/uL (160-400); Red Blood Count 5.55 X10*6/uL (4.20-5.50); Red Cell Distribution Width 21.4 % (11.0-16.0); White Blood Count 11.7 X10*3/uL (4.8-10.8)
[2023-01-07 17:32] LABS: Mean Corpuscular Volume 64.9 fL (80.0-98.0)
[2023-01-07 17:42] LABS: Alanine Aminotransferase 22 U/L (0-31); Alkaline Phosphatase 63 U/L (39-117); Anion Gap 14 (12-20); Aspartate Amino Transferase 29 U/L (5-31); Bilirubin Total 0.7 mg/dL (0.0-1.0); Blood Urea Nitrogen 9 mg/dL (9-16); C Reactive Protein 11.36 mg/dL (< or = 0.50); Calcium 8.5 mg/dL (8.4-10.2); Carbon Dioxide 20 mmol/L (22-29); Chloride 104 mmol/L (96-108); Creatinine Clr Calc Pharmacy 118.1; Estimated Glomerular Filt Rate > 60; Glucose Random 156 mg/dL (60-115); Potassium 3.6 mmol/L (3.3-5.1); Sodium 134 mmol/L (135-145); Total Protein 7.6 g/dL (6.5-8.0)
[2023-01-07 17:48] LABS: Erythrocyte Sedimentation Rate 39 MM/HR (0-20)
== END 2023-01-07 19:08 | disposition home or self-care (01) ==
PROVIDERS: Physician Assistant Medical; Emergency Provider Emergency Medicine Emergency Medical Services; PCP Internal Medicine
DX: L03.115 Cellulitis of right lower limb (principal); M79.661 Pain in right lower leg; E66.01 Morbid (severe) obesity due to excess calories; Z68.44 Body mass index [BMI] 60.0-69.9, adult
CPT/HCPCS: 36415; 80053; 83735; 85025; 85652; 86140; 93971; 99282; 99284

== ENCOUNTER 2023-02-26 12:41 | Emergency (ER) | payer OTHER, SELFPAY ==
--- NOTE | 2023-02-26 12:43 | ED_ITS ---
HPI - Skin/Abscess/Foreign Bdy General Chief complaint: General Medical <JOSE Gutiérrez Last Filed: 02/26/23 12:49> Stated complaint: rash on arm and abd <JOSE Gutiérrez Last Filed: 02/26/23 12:49> Time Seen by Provider: 02/26/23 13:40 <JOSE Gutiérrez Last Filed: 02/26/23 12:49> Source: patient <JOSE Chowdhury Last Filed: 02/26/23 14:23> Mode of arrival: ambulatory <JOSE Chowdhury Last Filed: 02/26/23 14:23> Limitations: no limitations <JOSE Chowdhury Last Filed: 02/26/23 14:23> History of Present Illness HPI narrative: This is a 22-year-old female history of hypertension, obesity presenting to the emergency department for evaluation of rash throughout body that is very itchy This started about a week ago, worsening in ever since last night. Patient reports this started after washing clothes with possibly new detergent. Denies any insect bites, new foods. Patient has no known allergies. Denies chest pain, shortness of breath, nausea, vomiting abdominal pain, headache, vision changes, dizziness and weakness <JOSE Chowdhury Last Filed: 02/26/23 14:23> Related Data Home medications: Previous Rx's Medication Instructions Recorded metoprolol succinate 50 mg 50 mg PO DAILY #90 tabs 10/14/22 tablet,extended release 24 hr cephalexin 500 mg capsule 500 mg PO QID #28 caps 01/07/23 doxycycline hyclate 100 mg tablet 100 mg PO BID #14 tabs 01/07/23 diphenhydramine HCl 25 mg capsule 25 mg PO TID PRN allergic reaction 02/26/23 (Benadryl) #20 caps prednisone 20 mg tablet 40 mg PO DAILY 5 days #10 tabs 02/26/23 <JOSE Gutiérrez Last Filed: 02/26/23 12:49> Allergies/Adverse reactions: Allergies Allergy/AdvReac Type Severity Reaction Status Date / Time No Known Allergies Allergy Verified 02/26/23 12:44 <JOSE Gutiérrez Last Filed: 02/26/23 12:49> Review of Systems Review of Systems: Constitutional : No Weight loss, No Fever, No Chills, No Fatigue, No Malaise ENT/Mouth : No sore throat, No Rhinorrhea Eyes: No Eye Pain, No Swelling, No Redness Cardiovascular : No Chest Pain, No SOB, No Dyspnea on Exertion, No Orthopnea, No Edema, No Palpitations Respiratory : No Cough, No Sputum, No Wheezing Gastrointestinal : No Nausea, No Vomiting, No Diarrhea, No Constipation, No abdominal Pain, No Hematochezia, No Melena Genitourinary : No Dysuria, No Urinary Frequency, No Hematuria, Musculoskeletal : No joint pain, No Myalgias, No Joint Swelling Skin : No Skin Lesions, + rash Neuro : No Weakness, No Numbness, No Dizziness, No Headache Psych : No Anxiety/Panic, No Depression All other systems reviewed and are negative <JOSE Chowdhury - Last Filed: 02/26/23 14:23> Yes all other systems are reviewed and are negative <JOSE Chowdhury - Last Filed: 02/26/23 14:23> [facility] Past Medical History Attestation statement: The following information was validated with the patient. <JOSE Chowdhury - Last Filed: 02/26/23 14:23> Source: old records reviewed and nursing notes reviewed <JOSE Chowdhury - Last Filed: 02/26/23 14:23> Medical History: Medical History Gallstones Hypertensive retinopathy of both eyes Lumbago with sciatica, right side Morbid obesity Palpitations Refused influenza vaccine Regular sinus tachycardia <JOSE Gutiérrez - Last Filed: 02/26/23 12:49> Family History Family History: Family History Maternal Aunt Breast cancer Family/Other Breast cancer Mother Thyroid disorder <JOSE Gutiérrez - Last Filed: 02/26/23 12:49> Social History Social History: Social History Housing: Apartment Alcohol intake: current Patient Tobacco Use Status: Never used Tobacco e-Cigarette/Vaping Use: Never Used Advance Directives: No Advance Directives Information Provided: No Current occupational status: employed Cognitive needs: No Hearing needs: No Vision needs: Yes <JOSE Gutiérrez - Last Filed: 02/26/23 12:49> Physical Exam Vital Signs: Vital Signs: Last Vital Signs Temp 98 F 02/26/23 12:44 Pulse 115 H 02/26/23 12:44 Resp 02/26/23 12:44 BP 150/89 H 02/26/23 12:44 Pulse Ox 99 02/26/23 12:44 O2 Del Method Room Air 02/26/23 12:44 BMI result Body Mass Index 62.1 <JOSE Gutiérrez - Last Filed: 02/26/23 12:49> Vital Signs: Last Vital Signs Temp 98 F 02/26/23 12:44 Pulse 115 H 02/26/23 12:44 Resp 02/26/23 12:44 BP 150/89 H 02/26/23 12:44 Pulse Ox 99 02/26/23 12:44 O2 Del Method Room Air 02/26/23 12:44 BMI result Body Mass Index 62.1 vss <JOSE Chowdhury - Last Filed: 02/26/23 14:23> Appearance: Alert.? Oriented X3.? No acute distress.? Head: Normocephalic, atraumatic, no step-offs or deformities Eyes: Pupils equal, round and reactive to light.? ENT: Pharynx normal.??Patent airway speaking in full sentences controlling secretions well Neck: Normal inspection.? Neck supple.? CVS: Normal heart rate and rhythm.? Pulses normal.? Respiratory: No respiratory distress.? Breath sounds normal.?No stridor Abdomen: Soft and nontender.?+ urticaria throughout body. Skin: Skin warm and dry.? Normal skin color.? Normal skin turgor.? Extremities: No lower extremity edema.? No calf ttp. 5/5 strength to bilateral upper and lower extremities Neuro: Oriented X 3.? No motor deficit.? No sensory deficit. CN 2-12 intact <JOSE Chowdhury - Last Filed: 02/26/23 14:23> Course Course Course Narrative: RME: 22-year-old female with a past medical history of HTN, obesity, pruritic rash to face, arms, legs, buttock x 1 week, worsening last night. Admits sx started after washing clothes on Monday. No known insect bites No appreciable rash to visible areas in triage. No mucous membrane or palm/sole involvement. Unable to fully evaluate patient in triage Full HPI, ROS and PE to be performed by primary ED provider. <JOSE Gutiérrez - Last Filed: 02/26/23 12:49> Reevaluation(s) Reevaluation #1: Patient will be given prednisone, Benadryl, will be discharged home on same and will have her follow up with PCP an homeland security program specialist. Educated on worrisome signs and symptoms and when to return. Outlined on discharge. Comfortable discharge home <JOSE Chowdhury - Last Filed: 02/26/23 14:23> Time: 14:23 <JOSE Chowdhury Last Filed: 02/26/23 14:23> Medical Decision Making Medical Decision Making MDM Narrative: This is a 22-year-old female presenting with itchy rash throughout body worsening over the past day however present for the past week. Has not tried anything at home to make this rash better. Physical exam with urticaria throughout body. Patent airway, speaking in full sentences controlling secretions well. Vitals stable. No stridor. BS clear Likely allergic reaction versus contact dermatitis. No signs Of anaphylaxis. No signs of airway compromise. Plan at this time prednisone, Benadryl. <JOSE Chowdhury Last Filed: 02/26/23 14:23> Differential Diagnosis Differential Diagnoses: The differential diagnosis associated with the presentation includes <JOSE Chowdhury Last Filed: 02/26/23 14:23> Likely allergic reaction versus contact dermatitis. No signs Of anaphylaxis. No signs of airway compromise. <JOSE Chowdhury Last Filed: 02/26/23 14:23> Admission/Observation Consideration of admission/observation: Escalation of care including admission/observation considered <JOSE Chowdhury Last Filed: 02/26/23 14:23> <JOSE Chowdhury Last Filed: 02/26/23 14:23> Discharge Plan Discharge Clinical Impression: Allergic reaction <JOSE Gutiérrez Last Filed: 02/26/23 12:49> Patient Disposition: Home, Self-Care <JOSE Gutiérrez Last Filed: 02/26/23 12:49> Instructions: General Allergic Reaction (ED), Allergy Testing (ED) <JOSE Gutiérrez Last Filed: 02/26/23 12:49> Additional Instructions: Take your medications as prescribed. If you were prescribed antibiotics today, it is important that you take your medication to their entirety, do not skip any doses, do not finish them early. Follow-up with your primary care provider this week. Return to the emergency department with new or worsening symptoms. Shortness of breath, nausea, vomiting, abdominal pain, changes in voice ( call 911 if these occur) In case of emergency call 911 Follow up with homeland security program specialist Take benadryl as needed for mild to moderate allergic reactions. Tomales bryan medicamentos seg?n lo prescrito. Si le recetaron antibi?ticos hoy, es importante que tome oscar medicamento en oscar totalidad, no se salte ninguna dosis, no los termine antes de tiempo. Seguimiento con oscar proveedor de atenci?n primaria esta semana. Regrese al departamento de emergencias con s?ntomas nuevos o que empeoran. Dificultad para respirar, n?useas, v?mitos, dolor abdominal, cambios en la voz (llame al 911 si esto ocurre) En aleida de emergencia llama al 911 Seguimiento con especialista en alergias. Tomales benadryl seg?n sea necesario para reacciones al?rgicas leves a moderadas. <JOSE Gutiérrez Last Filed: 02/26/23 12:49> Prescriptions: New prednisone 20 mg tablet 40 mg PO DAILY 5 Days Qty: 10 0RF diphenhydramine HCl [Benadryl] 25 mg capsule 25 mg PO TID PRN (Reason: allergic reaction) Qty: 20 0RF No Action metoprolol succinate 50 mg tablet extended release 24 hr 50 mg PO DAILY Qty: 90 1RF Rx Instructions: Call to schedule next PCP appt for more refills doxycycline hyclate 100 mg tablet 100 mg PO BID Qty: 14 0RF cephalexin 500 mg capsule 500 mg PO QID Qty: 28 0RF <JOSE Gutiérrez - Last Filed: 02/26/23 12:49> [facility]errals[facility] [Outside] - 2 days Sarah Vergara MD [Primary Care Provider] - 2 days <JOSE Gutiérrez - Last Filed: 02/26/23 12:49>
[2023-02-26 12:44] VITALS: BP 150/89; PULSE 115; RESP 17; TEMP 36.6; O2SAT 99; BMI 62.1
[2023-02-26] MEDS: diphenhydrAMINE HCL 25 MG CAPSULE 50 MG PO (14:23)
[2023-02-26] MEDS: predniSONE 20 MG TABLET 40 MG PO (14:23)
== END 2023-02-26 14:39 | disposition home or self-care (01) ==
PROVIDERS: Emergency Provider Emergency Medicine; PCP Internal Medicine
DX: L50.0 Allergic urticaria (principal); Z79.899 Other long term (current) drug therapy
CPT/HCPCS: 99283